=== PATIENT | male | born 1970 | race African-American/Black ===

== ENCOUNTER 2020-07-26 07:57 | Emergency (ER) | payer BC ==
[~2020-07-26] VITALS: Ht 185.4 cm; Wt 122.5 kg
[2020-07-26 08:06] VITALS: BP 202/107
[2020-07-26] MEDS ORDERED: ASPIRIN EC81 MG ORAL (08:06)
[2020-07-26] MEDS ORDERED: HYZAAR 50-12.51 EACH ORAL (08:06)
[2020-07-26] MEDS ORDERED: AMLODIPINE BESYL5 MG ORAL (08:06)
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
[2020-07-26] MEDS ORDERED: IBUPROFEN600 M1 ORAL (08:24)
[2020-07-26] MEDS ORDERED: ROBAXIN-750750 MG PO (08:24)
[2020-07-26] MEDS ORDERED: LIDODERM700 M1 TOPIC (08:24)
[2020-07-26 08:29] VITALS: BP 145/86
--- NOTE | 2020-07-26 08:29 | NUR ---
ED Nurse Note: Pt cleared by ERMD for discharge. DC instructions was given and explained to pt and verbalized understanding of teachings. /prescription sent to the pharmacy. All medical deviecs such as ID band removed. Pt is AAO x4, ambulatory and left with all personal belongings.
== END 2020-07-26 08:29 | disposition home or self-care (01) ==
LOC: EMR 08:19
DX: M54.5 Low back pain (principal); I10 Essential (primary) hypertension; Z91.018 Allergy to other foods; V43.62XA Car passenger injured in collision with other type car in traffic accident, initial encounter; Y92.411 Interstate highway as the place of occurrence of the external cause
CPT/HCPCS: 99281